=== PATIENT | male | born 1955 | race Hispanic/Latino ===

== ENCOUNTER 2017-04-08 17:34 | Emergency (ER) | payer BC ==
[~2017-04-08] VITALS: Ht 172.7 cm; Wt 98.9 kg
[2017-04-08] MEDS ORDERED: MECLIZINE HCL 12.5 MG TAB PO ONE (18:00)
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
== END 2017-04-08 20:23 | disposition home or self-care (01) ==
LOC: ER 17:34
DX: S06.0X0A Concussion without loss of consciousness, initial encounter (principal); W50.0XXA Accidental hit or strike by another person, initial encounter; Y92.008 Other place in unspecified non-institutional (private) residence as the place of occurrence of the external cause
CPT/HCPCS: 70450; 99283

== ENCOUNTER 2024-12-12 01:03 | Emergency (ER) | payer BC, MEDICARE ==
[~2024-12-12] VITALS: Ht 172.7 cm; Wt 104.3 kg
[2024-12-12 01:09] VITALS: TEMP 98.8
[2024-12-12 01:44] VITALS: PULSE 59; RESP 17
[2024-12-12 01:45] VITALS: BP 146/72; PULSE 59; RESP 17; TEMP 98.5; O2SAT 97
== END 2024-12-12 01:54 | disposition home or self-care (01) ==
LOC: ER 01:11
DX: I10 Essential (primary) hypertension (principal)
CPT/HCPCS: 93005; 99282